=== PATIENT | female | born 1950 | race Two or more races ===

== ENCOUNTER 2016-05-14 18:24 | Inpatient (IN) | payer OTHER, MEDICAID ==
[~2016-05-14] VITALS: Ht 160 cm; Wt 91.9 kg
[2016-05-14 20:04] LABS: Basophils # (auto) 0 uL; Basophils % (auto) 0.1 % (0.0-2.0); Eosinophils # (auto) 0 uL; Eosinophils % (auto) 0.1 % (0.0-7.0); Hematocrit 42.6 % (36.0-46.0); Hemoglobin 14.2 g/dL (12.2-16.2); Lymphocytes # (auto) 1.7 uL; Mean Corpuscular Hemoglobin 33.7 pg (28.0-32.0); Mean Corpuscular Hgb Conc. 33.2 g/dL (32.0-36.0); Mean Corpuscular Volume 101.5 fL (80.0-100.0); Mean Platelet Volume 8.8 fL (7.4-10.4); Monocytes % (auto) 4.8 % (0.0-12.0); Platelet Count (auto) 255 10^3/uL (140-450); White Blood Cell 20.7 10^3/uL (4.4-10.8)
[2016-05-14 20:20] LABS: Albumin 3.4 g/dL (3.4-5.0); BUN/Creatinine Ratio 18.4; Bilirubin, Total 0.6 mg/dL (0.2-1.0); Calcium 9.2 mg/dL (8.5-10.1); Magnesium 2.2 mg/dL (1.6-2.6); Potassium 3.3 mmol/L (3.5-5.1); Total Protein 8.2 g/dL (6.4-8.2)
[2016-05-14 21:49] LABS: Urine Bilirubin Negative (Negative); Urine Blood TRACE /uL (Negative); Urine Color Yellow (Yellow); Urine Glucose Normal (Normal); Urine Ketone Negative (Negative); Urine Mucus FEW (None Seen); Urine Nitrite Negative (Negative); Urine RBC 7 /hpf (0 - 4); Urine Squamous Epithelial Cell FEW /hpf (<5)
[2016-05-15] MEDS ORDERED: VANCOMYCIN 1GM/250ML D5W 250 ML IV ONE (02:45)
[2016-05-15] MEDS ORDERED: LEVOFLOXACIN 500MG 100 ML IV ONE (02:45)
[2016-05-15] MEDS ORDERED: ONDANSETRON HCL 4 MG/2 ML VIAL IV ONE (05:15)
[2016-05-15] MEDS ORDERED: MORPHINE SULFATE 4 MG/ML SYRG IV ONE (05:15)
[2016-05-15] MEDS ORDERED: POTASSIUM CHL 10% (20 MEQ/15ML) ORAL SOLN PO ONE (05:30)
[2016-05-15] MEDS ORDERED: SODIUM CHLORIDE 0.9% 1,000 ML IV ONE (05:30)
[2016-05-15] MEDS: SODIUM CHLORIDE 0.9% 1,000 ML IV SCH ×2 (06:23→18:09)
[2016-05-15] MEDS ORDERED: DEXTROSE (50%) 50ML SYRG IV PRN (06:30)
[2016-05-15] MEDS ORDERED: HYDROcodone-ACET 5/325MG TAB PO PRN (06:30)
[2016-05-15] MEDS ORDERED: ONDANSETRON HCL 4 MG/2 ML VIAL IV PRN (06:30)
[2016-05-15] MEDS ORDERED: NITROGLYCERIN 0.4 MG SL TAB SL PRN (06:30)
[2016-05-15] MEDS ORDERED: MORPHINE SULF INJ 2 MG/ML SYRINGE 1ML IV PRN (06:30)
[2016-05-15 08:15] VITALS: BP 116/60
[2016-05-15] MEDS: GABAPENTIN 100 MG CAP PO SCH ×2 (09:41→22:53)
[2016-05-15] MEDS: FAMOTIDINE 20 MG TAB PO SCH ×2 (09:42→22:53)
[2016-05-15] MEDS: ENOXAPARIN SOD 40 MG/0.4 ML SYRINGE SC SCH (09:43)
[2016-05-15] MEDS: LISINOPRIL 20 MG TAB PO SCH (09:43)
[2016-05-15] MEDS ORDERED: PATIENTS OWN MEDICATION (simvastatin 40 MG) PO SCH ×2 (10:00)
[2016-05-15] MEDS ORDERED: TEMA30CA PO (10:55)
[2016-05-15] MEDS ORDERED: HYDR25TA4 PO (10:55)
[2016-05-15] MEDS ORDERED: DEXL60CA3 PO (10:55)
[2016-05-15] MEDS ORDERED: ZALE5CAP PO (10:55)
[2016-05-15] MEDS ORDERED: FLUO40CA PO (10:55)
[2016-05-15] MEDS ORDERED: LISI40TA PO (10:55)
[2016-05-15] MEDS ORDERED: GABA-494 PO (10:59)
[2016-05-15] MEDS ORDERED: IBUP800T24 PO (10:59)
[2016-05-15] MEDS ORDERED: DIAZ10TA3 PO (10:59)
[2016-05-15] MEDS: InsuLIN REG 1unit/0.01ml Soln (100units/ml) SC SCH ×2 (12:00→17:54)
[2016-05-15] MEDS: ACCU-CHEK COMFORT CURVE STRIP VI SCH ×2 (12:08→18:04)
[2016-05-15] MEDS: ACETAMINOPHEN 325 MG TAB PO PRN ×2 (12:13→21:23)
[2016-05-15 13:00] VITALS: BP 133/75
[2016-05-15 13:37] LABS: Basophils # (auto) 0 uL; Basophils % (auto) 0.3 % (0.0-2.0); DEFINITIVE VIEW TRANSMISSION; Eosinophils # (auto) 0 uL; Eosinophils % (auto) 0.3 % (0.0-7.0); Hematocrit 39.4 % (36.0-46.0); Hemoglobin 12.7 g/dL (12.2-16.2); Lymphocytes # (auto) 1.7 uL; Lymphocytes % (auto) 12.6 % (10.0-50.0); Mean Corpuscular Hgb Conc. 32.3 g/dL (32.0-36.0); Mean Corpuscular Volume 102.1 fL (80.0-100.0); Mean Platelet Volume 8.8 fL (7.4-10.4); Monocytes # (auto) 0.8 uL; Monocytes % (auto) 5.6 % (0.0-12.0); Neutrophils # (auto) 11.1 uL; Neutrophils % (auto) 81.2 % (37.0-80.0); Platelet Count (auto) 242 10^3/uL (140-450); Red Cell Distribution Width 13.6 % (11.6-16.0); White Blood Cell 13.7 10^3/uL (4.4-10.8)
[2016-05-15 13:57] LABS: BUN/Creatinine Ratio 13.4; Calcium 8.3 mg/dL (8.5-10.1); Magnesium 2.1 mg/dL (1.6-2.6); Potassium 3.7 mmol/L (3.5-5.1)
[2016-05-15 17:00] VITALS: BP 136/74
[2016-05-15] MEDS ORDERED: POTASSIUM CHL 20 Meq TABLET PO ONE (17:30)
[2016-05-15 22:00] VITALS: BP 128/74
[2016-05-15] MEDS ORDERED: PRAVASTATIN SODIUM 20 MG TAB PO SCH (22:00)
[2016-05-16] MEDS: ACCU-CHEK COMFORT CURVE STRIP VI SCH ×2 (00:01→06:09)
[2016-05-16] MEDS ORDERED: LEVOFLOXACIN 500MG 100 ML IV SCH (03:00)
[2016-05-16 04:59] VITALS: BP 137/82
[2016-05-16] MEDS: InsuLIN REG 1unit/0.01ml Soln (100units/ml) SC SCH ×2 (06:00)
[2016-05-16 06:34] LABS: Basophils # (auto) 0.1 uL; Basophils % (auto) 0.9 % (0.0-2.0); DEFINITIVE VIEW TRANSMISSION; Eosinophils # (auto) 0.1 uL; Eosinophils % (auto) 1.2 % (0.0-7.0); Hematocrit 37.7 % (36.0-46.0); Hemoglobin 12.4 g/dL (12.2-16.2); Lymphocytes # (auto) 1.7 uL; Lymphocytes % (auto) 19.1 % (10.0-50.0); Mean Corpuscular Hgb Conc. 33.1 g/dL (32.0-36.0); Mean Corpuscular Volume 102.7 fL (80.0-100.0); Mean Platelet Volume 8.7 fL (7.4-10.4); Monocytes # (auto) 0.7 uL; Monocytes % (auto) 8.4 % (0.0-12.0); Neutrophils # (auto) 6.2 uL; Neutrophils % (auto) 70.4 % (37.0-80.0); Platelet Count (auto) 240 10^3/uL (140-450); Red Cell Distribution Width 13.2 % (11.6-16.0); White Blood Cell 8.8 10^3/uL (4.4-10.8)
[2016-05-16 07:10] LABS: Potassium 3.8 mmol/L (3.5-5.1)
[2016-05-16 07:20] LABS: Albumin 2.5 g/dL (3.4-5.0); BUN/Creatinine Ratio 14.8; Bilirubin, Total 0.5 mg/dL (0.2-1.0); Magnesium 2.2 mg/dL (1.6-2.6); Total Protein 6.8 g/dL (6.4-8.2)
[2016-05-16] MEDS: SODIUM CHLORIDE 0.9% 1,000 ML IV SCH (07:23)
[2016-05-16 09:00] VITALS: BP 132/81
[2016-05-16] MEDS: ENOXAPARIN SOD 40 MG/0.4 ML SYRINGE SC SCH (09:53)
[2016-05-16] MEDS: FAMOTIDINE 20 MG TAB PO SCH (09:54)
[2016-05-16] MEDS: GABAPENTIN 100 MG CAP PO SCH (09:54)
[2016-05-16] MEDS: LISINOPRIL 20 MG TAB PO SCH (09:55)
[2016-05-16 10:42] VITALS: BP 132/81
== END 2016-05-16 11:22 | disposition home or self-care (01) | DRG 872 ==
LOC: ER 19:29 → TELE 19:30 → TELE-WESTW 05-15 08:13
PROVIDERS: ADMIT Nurse Practitioner; ATTEND Family Medicine
DX: A41.9 Sepsis, unspecified organism (principal); N39.0 Urinary tract infection, site not specified; E66.9 Obesity, unspecified; E11.65 Type 2 diabetes mellitus with hyperglycemia; E78.5 Hyperlipidemia, unspecified; E87.6 Hypokalemia; F32.9 Major depressive disorder, single episode, unspecified; I10 Essential (primary) hypertension; K27.9 Peptic ulcer, site unspecified, unspecified as acute or chronic, without hemorrhage or perforation; Z96.651 Presence of right artificial knee joint; I67.2 Cerebral atherosclerosis; M19.90 Unspecified osteoarthritis, unspecified site; Z87.11 Personal history of peptic ulcer disease
CPT/HCPCS: 36415; 70450; 80048; 80053; 81001; 82607; 82962; 83605; 83735; 84484; 85025; 87040; 87086; 96361; 96365; 96368; 96375; J1956; J2405